=== PATIENT | male | born 1955 | race Caucasian/White ===

== ENCOUNTER 2022-03-06 10:46 | Outpatient (CLI) | payer OTHER, SELFPAY ==
[2022-03-06 14:14] LABS: Basophils Absolute Auto 0.03 K/uL (0.00-0.30); Basophils Percent Auto 0.4 % (0.0-3.0); Eosinophils Percent Auto 1.4 % (0.0-7.0); Hemoglobin* 16.5 gm/dL (13.5-17.5); Immature Granulocytes Abs Auto 0.01 K/uL (0.00-0.30); Immature Granulocytes Pct Auto 0.1 %; Lymphocytes Absolute Auto 1.61 K/uL (0.90-2.90); Lymphocytes Percent Auto 21.8 % (20-44); Mean Corpuscular HGB Conc 34 gm/dL (32-36); Mean Corpuscular Hemoglobin 30 pg (26-34); Mean Corpuscular Volume 89 fL (80-100); Monocytes Percent Auto 10.4 % (0.0-11.0); Neutrophils Absolute Auto 4.85 K/uL (1.7-7.0); Neutrophils Percent Auto 65.9 % (42.0-72.0); Platelet Count* 252 K/uL (140-440); RDW Coefficient of Variation % 13.3 % (11.5-15.5); White Blood Count* 7.37 K/uL (4.50-11.00)
[2022-03-06 14:18] LABS: Slide Review Reflex No
[2022-03-06 15:29] LABS: Albumin* 4.6 g/dL (3.3-5.0); Chloride* 108 mmol/L (96-114)
[2022-03-06 15:30] LABS: Potassium* 4.4 mmol/L (3.6-5.1); Sodium* 140 mmol/L (135-149)
[2022-03-06 15:32] LABS: Amylase* 56 U/L (18-89); Aspartate Amino Transferase* 28 U/L (12-35); Bilirubin Total* 0.7 mg/dL (0.1-1.5); Carbon Dioxide* 22 mmol/L (20-32); Estimated Glomerular Filt Rate 84 ml/min
[2022-03-06 15:33] LABS: Alanine Aminotransferase* 29 U/L (4-50); Alkaline Phosphatase* 77 U/L (40-150); Blood Urea Nitrogen* 18 mg/dL (7-30); Calcium* 9.7 mg/dL (8.4-10.6); Glucose* 92 mg/dL (60-115); Lipase* 82 U/L (23-300); Total Protein* 7.5 g/dL (6.0-8.3)
== END 2022-03-06 10:47 | disposition home or self-care (01) ==
PROVIDERS: Visit Provider Nurse Practitioner Family
DX: R10.9 Unspecified abdominal pain (principal)
CPT/HCPCS: 80053; 82150; 83690; 85025; 87086

== ENCOUNTER 2022-03-11 13:57 | Outpatient (CLI) | payer OTHER, SELFPAY ==
[2022-03-11 22:38] LABS: H pylori Ag Stool* Negative (Negative)
== END 2022-03-11 13:58 | disposition home or self-care (01) ==
LOC: KYNREF 13:57
PROVIDERS: Visit Provider Nurse Practitioner Family
DX: R10.9 Unspecified abdominal pain (principal)
CPT/HCPCS: 87338

== ENCOUNTER 2022-03-17 07:27 | Day surgery (SDC) | payer OTHER, SELFPAY ==
[2022-03-17] VITALS (15 sets, daily range): BP systolic 132–167; BP diastolic 77–89; PULSE 54–70; RESP 16–20; TEMP 36.5–36.9; O2SAT 92–98; BMI 30.1
[2022-03-17] MEDS: LACTATED RINGERS 1000 ML 1,000 ML 100 ML IV ×2 (07:55→10:58)
[2022-03-17] MEDS: SODIUM CHLORIDE 0.9 % (FLUSH) 10 ML SYRINGE IVF (07:55)
--- NOTE | 2022-03-17 08:08 | SUR.PREOP ---
Patient provided home covid negative results to RN.
[2022-03-17] MEDS: CEFAZOLIN 2 GM INJ IVP (09:10)
[2022-03-17] MEDS: BUPIVACAINE 0.25% 30 ML 10 ML INJECTION (09:28)
--- NOTE | 2022-03-17 10:20 | SUR.OPER ---
PATIENT QUESTIONS ANSWERED SATISFACTORILY PREOPERATIVELY.? PATIENT BROUGHT TO OR #4 PER CART.? Patient positioned supine on OR #4 bed.? The perioperative?team supported arms bilaterally on arm boards.? Final approval of positioning by surgeon.?
--- NOTE | 2022-03-17 10:51 | P.GSOP_ITS ---
Operative Note Date of procedure: 03/17/22 Pre-op diagnosis: 1. Symptomatic right inguinal hernia. Post-op diagnosis: 1. Indirect right inguinal hernia. Type of Procedure: 1. Open right inguinal hernia repair with mesh. Indications: 66-year-old male Was seen in clinic for evaluation of a right inguinal hernia.? Patient states that he initially noticed a bulge in the right groin 1-2 months ago.? He complained of pain and increased size of the bulge with coughing, walking, and standing.? He also sometimes notices ?popping noise? in the bulge.? Lying down relieved his pain.? On clinical exam he had a moderately-sized right inguinal hernia that was reducible. Given patient's clinical history and his physical exam, an open right inguinal hernia repair was recommended. The procedure was discussed in detail. Risks associated procedure including infection, bleeding, injury to intra-abdominal and preperitoneal organs were all discussed with the patient, and he agreed to proceed. Procedure Description: After discussing the risks and benefits of the procedure, the patient signed informed consent.? The operative site was marked and the patient was brought to the operating room and placed on the operating table in supine position.? Care was taken to pad the patient's pressure points.?? The patient was then intubated by anesthesia.?? The operative site was then prepped and draped in the usual sterile fashion.? A time-out was then performed. Surgical site was prepped and draped in sterile fashion the right side. Site of the incision was marked with a marking pen and local anesthetic was injected. An oblique incision was made just above and medial to inguinal ligament. Subcutaneous tissue was dissected to external obliques. Superficial subcutaneous vascular branches were clamped, divided and tied with 3-0 Vicryl ties. Small incision was made through the external oblique aponeurosis with scalpel. I then used Metzenbaum scissors to dissect under external obliques and extend my incision. Mosquito clamps were placed on the edges of external oblique exposing the inguinal floor. The right Ilioinguinal nerve was identified and was going through the plain of dissection. The nerve was divided proximally and distally and a 3 cm segment of it was excised. This was not sent to pathology. I then identified the spermatic cord and the hernia sac. I bluntly dissected subcutaneous tissues in order to place Mily drain around the cord structures. Multiple dense adhesions were noted of the spermatic cord to the hernia sac. Those adhesions were taken down with cautery. Cremasteric fibers were peeled off and dissected off the hernia sac and cord structures. There was evidence of indirect inguinal hernia. There was also a cord lipoma. The preperitoneal fat of the cord lipoma was dissected off the hernia sac. This fat was clamped near internal ring, excised with cautery, and tied with Vicryl tie. The hernia sac was from the spermatic cord bluntly and with cautery. The indirect hernia sac was incised and examined from the inside. Part of the hernia sac was fatty and the fat was dissected away from the peritoneum with cautery. No intraabdominal organs were incarcerated in the hernia sac. A stitch using 2-0 Vicryl was placed near the base of the hernia sac through the sac and the hernia sac tied off. Hernia sac was then excised and not sent to pathology. This was then pushed into preperitoneal space through the internal ring. Surgical field was examined for bleeding and hemostasis was achieved with cautery and Vicryl ties. A Bard mesh plug was inserted through the internal ring and secured to the adjacent tissues with interrupted 0-0 Neurolon sutures. A Bard mesh onlay was also used for hernia repair. The mesh onlay was sutured in place with interrupted 0-0 Neurolon sutures to the conjoint tendon medially and shelving edge laterally, pubic tubercle inferiorly. Simple interrupted sutures were placed using 0-0 Neurolon at the base of internal inguinal ring making it only large enough to fit a tip of one finger through. Spermatic cord was placed back into scrotum. Mily drain was removed. External oblique aponeurosis was closed with a running 3-0 Vicryl. Additional local anesthetic was injected into subcutaneous tissues. Leon's fascia and subcutaneous tissue was re- approximated with interrupted Vicryl stitches. Skin incision was closed with 4-0 Monocryl subcuticular stitch. Steri strips and sterile dressing were applied over incision. All counts were correct at the end of the case. Patient tolerated this procedure well and was transferred to PACU in stable condition.? Findings: Indirect hernia sac. Hernia was repaired with mesh plug and mesh onlay. Anesthesia: GETA Surgeon: Kirill Winter MD Estimated blood loss (mL): 5 Condition: stable Disposition: PACU
--- NOTE | 2022-03-17 10:59 | W.ANESCHARGE ---
Anesthesia Charges Start Date/Time Anesthesia Start Date: 03/17/22 Anesthesia Start Time: 09:00 Stop Date/Time Anesthesia Stop Date: 03/17/22 Anesthesia Stop Time: 10:58 Summary Emergency: No
[2022-03-17] MEDS: fentaNYL 100 MCG/2 ML inj 50 MCG IVP ×3 (11:02→11:27)
--- NOTE | 2022-03-17 11:46 | W.ANESCHARGE ---
Anesthesia Charges Start Date/Time Anesthesia Start Date: 03/17/22 Anesthesia Start Time: 09:00 Stop Date/Time Anesthesia Stop Date: 03/17/22 Anesthesia Stop Time: 10:58 Summary Emergency: No
[2022-03-17] MEDS: HYDROCODONE-ACETAMIN 5-325 MG 1 TAB PO (12:38)
== END 2022-03-17 13:00 | disposition home or self-care (01) ==
PROVIDERS: PCP Nurse Practitioner Family; Visit Provider Surgery
PROC: (CPT 49505; principal; 2022-03-17 09:00)
DX: K40.90 Unilateral inguinal hernia, without obstruction or gangrene, not specified as recurrent (principal)
CPT/HCPCS: 49505; 00830; 00832; A9270; C1781; J0330; J0690; J1100; J1885; J2250; J2405; J2704; J2710; J3010; J3490; J7120

== ENCOUNTER 2023-06-23 09:46 | Outpatient (CLI) | payer MEDICARE, SELFPAY ==
--- NOTE | 2023-06-23 10:15 | MR_ITS ---
[facility] [address] [facility] [address] Phone:?[phone] Fax:?[phone] Referring Physician Information: Dmitriy Garduno [address] [facility] [address] Phone:?[phone] Fax:?[phone] Patient:Jun Keating D.O.B:?1955 Sex:?Male Phone:?[phone] [facility] MRN:?[id number] Exam Date:?06/23/2023 EXAM: MR HUMERUS WITHOUT CONTRAST RIGHT COMPARISON:?None available. CLINICAL INFORMATION: Evaluate proximal humerus. Probable bone island in the proximal humerus. TECHNICAL INFORMATION: TECHNICAL INFORMATION: Using a 1.5T MR scanner and a localizing surface coil: sagittals: PD, T2 coronals: PD, T2, STIR axials: T1, T2, STIR SEDATION: None CONTRAST: None INTERPRETATION: Exam is mildly degraded secondary to patient motion. Tendons and Muscles: The visualized anterior compartment muscles and tendons - biceps brachii, brachialis and coracobrachialis - are intact. The visualized posterior compartment muscles and tendons - medial, lateral and long heads of the triceps - are intact. The deltoid muscle is intact. The visualized portions of the pectoralis major and minor muscles and their tendinous insertions are intact. The visualized latissimus dorsi and teres major are intact. Joints: The visualized portions of the shoulder and elbow joints are unremarkable. There is no expansile joint effusion. Bones: Proximal humerus posterolaterally, there is a region of T1/T2/STIR low signal intensity measuring 9 x 9 mm (coronal image 8, and axial image 7). There is minimal surrounding bone marrow signal hyperintensity. No endosteal scalloping or periosteal edema. No acute bony abnormality is identified. Soft Tissues: Mild to moderate subacromial/subdeltoid bursitis. No soft tissue mass is identified. No expansile bursitis is identified. There is no lymphadenopathy. The visualized neurovascular structures are unremarkable. CONCLUSION: 1. Region of low signal in the proximal posterolateral humerus is indeterminate by MRI imaging. While this may reflect a benign bone island, a region of sclerotic metastatic disease could have a similar appearance. Bone scan is recommended for more complete evaluation. 2. No convincing appearance of myotendinous abnormality about the humerus. 3. Mild to moderate subacromial/subdeltoid bursitis KME Electronically signed on 06/23/2023 2:03:00 PM by Hanh Acevedo M.D.
== END 2023-06-23 09:47 | disposition home or self-care (01) ==
PROVIDERS: PCP Nurse Practitioner Family; Visit Provider Nurse Practitioner Family
DX: M79.601 Pain in right arm (principal); M75.51 Bursitis of right shoulder
CPT/HCPCS: 73218